=== PATIENT | female | born 1930 | race Caucasian/White ===

== ENCOUNTER 2016-10-22 17:04 | Emergency (ER) | payer MEDICAID ==
[2016-10-22 17:29] VITALS: BP 129/55
[2016-10-22 17:48] LABS: % BASOPHILS 0.9 % (0.0-2.0); % EOSINOPHILS 8.4 % (0.0-5.0); % LYMPHOCYTES 20.6 % (20.0-50.0); % MONOCYTES 8.6 % (2.0-10.0); % NEUTROPHILS 61.5 % (40.0-80.0); HEMATOCRIT 36.3 % (35.0-45.0); HEMOGLOBIN 12.3 gm/dL (11.7-16.1); MEAN CELL VOLUME 92.4 fl (81-100); MEAN CORPUSCULAR HEMOGLOBIN 31.3 pg (27.0-31.0); MEAN CORPUSCULAR HGB CONC 33.9 pg (28.0-36.0); MEAN PLATELET VOLUME 8.2 fl; NEUTROPHILE ABSOLUTE 3.9 Th/cmm (1.8-8.0); PLATELET COUNT 196 Th/cmm (150-400); RED BLOOD COUNT 3.93 Mil/cmm (3.80-5.20); RED CELL DISTRIBUTION WIDTH 14.2 % (11.5-20.0); WHITE BLOOD COUNT 6.3 Th/cmm (4.8-10.8)
--- NOTE | 2016-10-22 17:54 | ED Physician Chart ---
Chief Complaint/HPI - Patient Information Date Seen:: 10/22/16 Time Seen:: 17:39 Chief Complaint:: RIGHT EYELID INFECTION History of Present Illness:: THIS IS AN 86 YO FEMALE WITH A COMPLAINT ABOUT AN INFECTION OF THE RIGHT LOWER EYE. SHE IS CONCERNED THAT IT HAS GOTTEN WORSE OVE THE PAST FEW DAY AND WANT MORE TREATMENT FOR IT. SHE DENIES HER VISUAL ACUITY HAS DECREASED AND DENIES FEVER OR URI SYMPTOMS. Allergies:: Allergies Allergy/AdvReac Type Severity Reaction Status Date / Time No Known Allergies Allergy Verified 10/22/16 17:29 Vitals:: Vital Signs - 8 hr 10/22/16 10/22/16 17:29 17:34 Temp 97.9 F HR 60 RR 15 BP 129/55 129/55 Historian:: Patient, Family Member Review:: Nurse's Note Reviewed Review of Systems - Review of Systems Eyes: Other (SMALL AREA OF CELLULITIS ON THE LOWER RIGHT EYELID ) Past Medical History - Past Medical History Obtainable: Yes Past Medical History: No significant medical hx Family History: None Social History: Non Smoker, No Alcohol, No Drug Use Surgical History: None Psychiatricy History: None Medication: Reviewed Family Medical History - Family Member Mother Son History Unknown: Yes Ethnicity: Hx Family Cancer: No Hx Family Coronary Artery Disease: No Hx Family Congestive Heart Failure: No Hx Family Stroke: No Hx Family Dementia: No Hx Family AIDS: No Hx Family COPD: No Hx Family Hepatitis: No Hx Family Tuberculosis: No Physical Exam - Physical Examination General/Constitutional: Awake, Well-developed, well-nourished, Alert, No distress, GCS 15, Non-toxic appearing, Ambulatory Head: Atraumatic Eyes: Lids, conjuctiva normal, PERRL, EOMI Other Eyes comments:: THERE IS A SMALL CHALAZION OF THE LOWER RIGHT EYELID Skin: Nl inspection, No rash, No skin lesions, No ecchymosis, Well hydrated, No lymphadenopathy ENMT: External ears, nose nl, Nasal exam nl, Lips, teeth, gums nl Neck: Nontender, Full ROM w/o pain, No JVD, No nuchal rigidity, No bruit, No mass, No stridor Respiratory: Nl effort/Exclusion, Clear to Auscultation, No Wheeze/Rhonchi/Rales Cardio Vascular: RRR, No murmur, gallop, rubs, NL S1 S2 GI: No tenderness/rebounding/guarding, No organomegaly, No hernia, Normal BS's, Nondistended, No mass/bruits, No McBurney tenderness : No CVA tenderness Extremities: No tenderness or effusion, Full ROM, normal strength in all extremities, No edema, Normal digits & nails Neuro/Psych: Alert/oriented, DTR's symmetric, Normal sensory exam, Normal motor strength, Judgement/insight normal, Mood normal, Normal gait, No focal deficits Misc: normal gait, Normal back, No paraspinal tenderness ED Septic Shock - . Is Septic Shock (SBP<90, OR Lactate>4 mmol\L) present?: No - <6hrs of presentation: Vital Signs: Vital Signs - 8 hr 10/22/16 10/22/16 17:29 17:34 Temp 97.9 F HR 60 RR 15 BP 129/55 129/55
[2016-10-22 18:03] LABS: INR 0.96 (0.5-1.4)
[2016-10-22 18:07] LABS: ALB/GLOB RATIO 1.1 (1.0-1.8); ALKALINE PHOSPHATASE 80 U/L (34-104); ANION GAP 4.4 (7.0-16.0); BILIRUBIN,TOTAL 0.5 mg/dL (0.3-1.0); BUN - UREA NITROGEN 17 mg/dL (7-25); BUN/CREATININE RATIO 21.3; CALCIUM SERUM 10.6 mg/dL (8.6-10.3); CARBON DIOXIDE 27.8 mEq/L (21.0-31.0); CHLORIDE 107 mEq/L (98-107); CHOLESTEROL 158 mg/dL (<200); CREATININE - SERUM 0.8 mg/dL (0.6-1.2); GLUCOSE 136 mg/dL (70-105); POTASSIUM SERUM 4.2 mEq/L (3.5-5.1); SGOT 26 U/L (13-39); SGPT/ALT 13 U/L (7-52); SODIUM SERUM 135 mEq/L (136-145); TRIGLYCERIDES 112 mg/dL (<150)
== END 2016-10-22 18:56 | disposition home or self-care (01) ==
LOC: ER 17:04
DX: H01.9 Unspecified inflammation of eyelid (principal)
CPT/HCPCS: 36415-UA; 80053-TC; 80061-TC; 84443-TC; 84484-TC; 85025-TC; 85610-TC; 85730-TC; 86592-TC; 93005